=== PATIENT | male | born 1995 | race Caucasian/White ===

== ENCOUNTER 2018-04-11 21:08 | Emergency (ER) | payer OTHER ==
[2018-04-11] MEDS: HYDROcodone/APAP 5/325MG 1 TAB TABLET PO (21:43)
[2018-04-11] MEDS: LIDOCAINE 2% 20 ML VIAL. IJ (21:44)
[2018-04-11] MEDS: DIPHTH,PERTUSS(ACELL),TET TOX 0.5 ML DISP.SYRIN. VAX IM (21:45)
[2018-04-11] MEDS: CLINDAMYCIN HCL 150 MG CAPSULE. PO (22:40)
== END 2018-04-11 22:46 | disposition home or self-care (01) ==
LOC: ER 21:08
DX: S81.812A Laceration without foreign body, left lower leg, initial encounter (principal); F90.9 Attention-deficit hyperactivity disorder, unspecified type; W17.89XA Other fall from one level to another, initial encounter; Y93.33 Activity, BASE jumping; Y99.8 Other external cause status; Y92.89 Other specified places as the place of occurrence of the external cause
CPT/HCPCS: 12032; 73590; 90471; 90715; 99284-25